=== PATIENT | female | born 1975 | race Caucasian/White ===

== ENCOUNTER 2016-09-09 00:04 | Emergency (ER) | payer BC ==
[~2016-09-09] VITALS: Ht 175.3 cm; Wt 85.5 kg
[~2016-09-09 00:04] MED LIST: ENDOCET 5-3251 EACH PO; MOTRIN800 MG PO; NATALCARE RX1 TABLET PO; PREFERA-OB P1 TABLET PO
[2016-09-09 01:20] VITALS: BP 124/76
== END 2016-09-09 01:21 | disposition home or self-care (01) ==
LOC: EME 00:04
DX: M25.571 Pain in right ankle and joints of right foot (principal)
CPT/HCPCS: 99281; 99283